=== PATIENT | male | born 1995 | race African-American/Black ===

== ENCOUNTER 2023-01-05 14:00 | Outpatient (REF) | payer OTHER, SELFPAY ==
[2023-01-07 15:59] LABS: TS Negative Control Passed; TS Panel A 1; TS Panel B 0; TS Positive Control Passed; TSpotTB Negative (Negative)
== END 2023-01-05 14:01 | disposition home or self-care (01) ==
LOC: HO.LAB 14:00
PROVIDERS: Visit Provider Nurse Practitioner Family
DX: Z11.1 Encounter for screening for respiratory tuberculosis (principal)
CPT/HCPCS: 36415; 86481